=== PATIENT | male | born 1975 | race Caucasian/White ===

== ENCOUNTER 2017-10-20 11:44 | Emergency (ER) | payer OTHER ==
[2017-10-20 11:55] VITALS: BP 120/68; PULSE 56; RESP 20; TEMP 98.1
[2017-10-20] MEDS ORDERED: DIPH,PERTUS(ACELL)TETVAC-LF 0.5 ML VIAL IM ONE (12:16)
--- NOTE | 2017-10-20 12:24 | ED ---
General Adult HPI - General Chief complaint: Wound/Laceration Stated complaint: Finger Injury Source: patient, RN notes reviewed Mode of arrival: ambulatory Limitations: no limitations - History of Present Illness Initial comments: 82-year-old male presents to the emergency department for a chief complaint of middle finger laceration of the left hand. Patient states he was outside moving logs when a log rolled back down and hit his finger against another log. Patient denies falling or hitting his head. Patient denies any other trauma. Patient denies pain anywhere else in his hands or other digits of the left hand. Patient denies pain in his wrist. Patient denies any recent fevers or chills. Patient states he is not sure when he last got a tetanus shot. Patient states he can move the finger and has sensation to touch but it feels a little numb at the tip of the finger by the laceration. Patient denies any other complaints at this time including chest pain, shortness of breath, abdominal pain, fevers. - Related Data Home Medications Medication Instructions Recorded Confirmed Fexofenadine/Pseudoephedrine 1 each PO DAILY 02/01/16 02/07/16 [Nani-D 24 Hour Tablet] Previous Rx's Medication Instructions Recorded HYDROcodone/APAP 7.5-325MG [[place] 1 each PO Q4H PRN #60 tab 02/07/16 7.5] Acetaminophen-Codeine 300-30mg 1 tab PO Q8H PRN #12 tablet 10/20/17 [Tylenol #3] Allergies Allergy/AdvReac Type Severity Reaction Status Date / Time amoxicillin Allergy Rash/Hives Verified 10/20/17 11:55 Review of Systems ROS Statement: Those systems with pertinent positive or pertinent negative responses have been documented in the HPI. ROS Other: All systems not noted in ROS Statement are negative. Past Medical History Past Medical History: Asthma Additional Past Medical History / Comment(s): chronic back pain History of Any Multi-Drug Resistant Organisms: None Reported Past Surgical History: Back Surgery, Hernia Repair Additional Past Surgical History / Comment(s): back fusion, Past Anesthesia/Blood Transfusion Reactions: No Reported Reaction Past Psychological History: No Psychological Hx Reported Smoking Status: Never smoker Past Alcohol Use History: Occasional Past Drug Use History: None Reported - Past Family History Mother Family Medical History: No Reported History General Exam Limitations: no limitations General appearance: alert, in no apparent distress Respiratory exam: Present: normal lung sounds bilaterally. Absent: respiratory distress, wheezes, rales, rhonchi, stridor Cardiovascular Exam: Present: regular rate, normal rhythm, normal heart sounds. Absent: systolic murmur, diastolic murmur, rubs, gallop, clicks Extremities exam: Present: full ROM, tenderness (There is some tenderness to palpation of the distal phalanx of the third digit of the left hand. No other complaints of tenderness on the left hand.), normal capillary refill, other ( There is a 1.5 cm laceration to the volar aspect of the distal phalanx of the third digit on the left hand. No signs of infection. Patient has full sensation to the third digit. Patient is able to move the third digit has full range of motion. Capillary refill less than 2 seconds. ) Neurological exam: Present: alert, oriented X3, CN II-XII intact Course Vital Signs 10/20/17 11:53 Temperature 98.1 F Pulse Rate 56 L Respiratory 20 Rate Blood Pressure 120/68 O2 Sat by Pulse 100 Oximetry Procedures - Procedures Initial comment: Body area: Volar aspect of the distal phalanx of the third digit on the left hand. Laceration length: 2 cm Foreign bodies: no foreign bodies Tendon involvement: none Nerve involvement: none Vascular damage: no Anesthesia: local infiltration Local anesthetic: 4 mL 1% lidocaine Preparation: Patient was prepped and draped in the usual sterile fashion. Irrigation solution: saline Irrigation method:sterile water jet lavage Skin Closin-0 ethilon using sterile technique Number of sutures: 7 Technique: interupted Dressing: antibiotic ointment/ gauze Patient tolerance: Patient tolerated the procedure well with no immediate complications. Medical Decision Making - Medical Decision Making 42-year-old male sent to the emergency department for chief complaint of laceration to the distal phalanx of the third digit on the left hand. Patient states this happened an hour ago. He states a log fell back onto his finger in hit against another log. Patient received a tetanus shot in the emergency department. Patient denies any other complaints at this time besides pain in the left third digit. There was no pain elsewhere in the left hand. X-ray shows no acute fractures or dislocations of the left hand. 7 sutures were applied to the third digit of the left hand. It was covered with bacitracin ointment. Patient states he was exiting for pain. Patient admits to having a prescription of Lenore but states he doesn't take it because it makes his stomach upset. Patient was given a small prescription of Tylenol 3 and told to take Motrin. If the Motrin doesn't work he may try the Tylenol 3. He is to follow up with primary care in a couple days. He is to return to the emergency department if he notices any signs of infection. Disposition Clinical Impression: Laceration Disposition: HOME SELF-CARE Condition: Good Instructions: Care For Your Stitches (ED), Laceration (ED) Additional Instructions: Please return to the emergency department in 10-14 days for suture removal. You may apply antibiotic ointment. Please return sooner if you notice signs of infection. Please follow up with primary care provider in one to 2 days. Prescriptions: Acetaminophen-Codeine 300-30mg [Tylenol #3] 1 tab PO Q8H PRN #12 tablet PRN Reason: Pain Referrals: Abeil Logan DO [Primary Care Provider] - 1-2 days Time of Disposition: 13:36 Decision Time: 13:40
--- NOTE | 2017-10-20 12:30 | XR ---
EXAMINATION TYPE: XR hand complete LT , 3 VIEWS DATE OF EXAM ORDERED: 10/20/2017 HISTORY: Pain. COMPARISON: None. FINDINGS: No fracture, dislocation or other acute osseous lesion is seen. IMPRESSION: NORMAL LEFT HAND.
== END 2017-10-20 14:00 | disposition home or self-care (01) ==
LOC: EC 11:44
DX: S61.213A Laceration without foreign body of left middle finger without damage to nail, initial encounter (principal); Z23 Encounter for immunization; Z88.0 Allergy status to penicillin; Z79.899 Other long term (current) drug therapy; W22.8XXA Striking against or struck by other objects, initial encounter; Y92.009 Unspecified place in unspecified non-institutional (private) residence as the place of occurrence of the external cause
CPT/HCPCS: 12001; 90471; 90715; 99282

== ENCOUNTER → 2017-11-01 | Outpatient (CLI) | payer OTHER ==
--- NOTE | 2017-11-02 23:21 | MR ---
EXAMINATION TYPE: MR lumbar spine wo/w con DATE OF EXAM: 11/01/2017 COMPARISON: NONE HISTORY: Low back pain after fusion surgery TECHNIQUE: Multiplanar, multisequence images of the lumbar spine is performed without and with IV contrast, util izing 7.5 mL intravenous Gadavist FINDINGS: Sagittal images of the lumbar spine show vertebral body heights and alignment to appear sat isfactory. There is artifact from artificial disc material L4-L5 and L5-S1 levels. There is artifact from inferior interpedicular rods and screws bilaterally at L4-S1 levels. Disc space heights and hydr ation are satisfactory above the L4 level The conus medullaris is normal in position and signal endin g T12-L1 disc space. There is single enhancing lumbosacral nerve root, nonspecific finding. The bone marrow signal intensity is within normal limits. No suspicious osseous enhancement is seen. There ar e small hemangioma superior L1 vertebra. No significant spurring is noted. Axial images show the T12-L1, L1-L2, and L2-L3 levels also appear within normal limits. Axial images at the L3-L4 level shows broad disc bulge mildly effacing the anterior thecal sac with m ild facet degenerative changes bilaterally. Bilateral neural foramina are patent. Axial images at L4-L5 level show artifact from posterior fusion hardware and disc material. Spinal ca nal is grossly preserved. Bilateral neural foramina are patent. Enhancing right L5 exiting nerve is n oted. Axial images at L5-S1 level show artifact from disc material and posterior fusion hardware. Bilateral neural foramina are patent. Spinal canal is preserved. No suspicious retroperitoneal findings are seen. Paraspinal muscle bulk is maintained. IMPRESSION: Postsurgical change L4-S1 level with satisfactory alignment. Mild degenerative changes L3 -L4 level otherwise no significant findings are seen to account for patient's symptoms.
== END | disposition home or self-care (01) ==
LOC: RADMRIMAIN 20:08
PROVIDERS: ATTEND Family Medicine
DX: M47.816 Spondylosis without myelopathy or radiculopathy, lumbar region (principal); G89.29 Other chronic pain; Z98.890 Other specified postprocedural states
CPT/HCPCS: 72158; A9581

== ENCOUNTER 2019-02-28 17:26 | Emergency (ER) | payer OTHER ==
[2019-02-28 17:33] VITALS: RESP 18; TEMP 98.1
[2019-02-28] MEDS ORDERED: LIDOCAINE 1% INJ 10MG/ML (20 ML MDV) SQ ONE (17:48)
--- NOTE | 2019-02-28 18:37 | ED ---
General Adult HPI - General Chief complaint: Wound/Laceration Stated complaint: Laceration finger Time Seen by Provider: 02/28/19 17:37 Source: patient Mode of arrival: ambulatory Limitations: no limitations - History of Present Illness Initial comments: Patient is a 43-year-old male presents emergency Department with a chief complaint of a cut on the finger. Patient reports he was working with [employer] a [employer] outside and not wearing gloves when he accidentally lacerated the palmar aspect of the left fifth digit. Patient reports mild bleeding at the time of injury. Patient reports his tetanus shot is up-to-date. Patient is not on blood thinners. Patient denies limited range of motion at the site of injury. Patient reports minimal pain. Patient reports the pain is exacerbated with movement and alleviated rest. Patient denies taking medication to alleviate the symptoms. - Related Data Home Medications Medication Instructions Recorded Confirmed Fexofenadine/Pseudoephedrine 1 each PO DAILY 02/01/16 02/07/16 [Nani-D 24 Hour Tablet] Previous Rx's Medication Instructions Recorded HYDROcodone/APAP 7.5-325MG [[place] 1 each PO Q4H PRN #60 tab 02/07/16 7.5] Acetaminophen-Codeine 300-30mg 1 tab PO Q8H PRN #12 tablet 10/20/17 [Tylenol #3] Allergies Allergy/AdvReac Type Severity Reaction Status Date / Time amoxicillin Allergy Rash/Hives Verified 02/28/19 17:29 Review of Systems ROS Statement: Those systems with pertinent positive or pertinent negative responses have been documented in the HPI. ROS Other: All systems not noted in ROS Statement are negative. Past Medical History Past Medical History: Asthma Additional Past Medical History / Comment(s): chronic back pain History of Any Multi-Drug Resistant Organisms: None Reported Past Surgical History: Back Surgery, Hernia Repair Additional Past Surgical History / Comment(s): back fusion, Past Anesthesia/Blood Transfusion Reactions: No Reported Reaction Past Psychological History: No Psychological Hx Reported Smoking Status: Never smoker Past Alcohol Use History: Occasional Past Drug Use History: None Reported - Past Family History Mother Family Medical History: No Reported History General Exam - General Exam Comments Initial Comments: General: Well-developed well-nourished distress HEENT: Normocephalic/atraumatic, PERLL, pharynx erythema, swallowing well, EAC no erythema, no exudates, TM clear, no cervical lymph nodes Neck: Supple, nontender, trachea midline Chest/Lungs: Normal respirations, no signs of respiratory distress clear to auscultation bilaterally no wheezes, rales, rhonchi Cardiac: Regular rate and rhythm, normal S1-S2, no murmurs rubs or gallops Abdomen/GI: Soft nontender, bowel sounds equal or quadrant x4, no guarding, no rebound no CVA tenderness Musculoskeletal: Laceration on the palmar aspect of the left fifth digit measuring approximately 1 cm, +2 radial pulses bilaterally, no active bleeding at the laceration site, no edema or erythema Skin: Warmth, no rashes or lesions, no cyanosis or diaphoresis Neurologic: AAO x 3, CN 2-12 intact, Psychiatric: Mood and affect normal, judgment normal Limitations: no limitations Course Vital Signs 02/28/19 02/28/19 17:29 18:44 Temperature 98.1 F 98.1 F Pulse Rate 76 78 Respiratory 18 18 Rate Blood Pressure 129/80 126/80 O2 Sat by Pulse 98 98 Oximetry Procedures - Laceration Laceration #1 Consent Obtained: verbal consent Indication: laceration Site: hand (Left fifth digit) Size (cm): 1 Description: linear Depth: simple, single layer Sedation/Analgesia: none Anesthetic Used: lidocaine 1% Anesthesia Technique: local infiltration Amount (mls): 5 Pre-repair: irrigated extensively Type of Sutures: nylon Size of Sutures: 4-0 Number of Sutures: 4 Technique: simple, interrupted Patient Tolerated Procedure: well Medical Decision Making - Medical Decision Making Patient is a 43-year-old male presents emergency Department with chief complaint of a cut on his finger. The laceration site was repaired with 4 sutures. Patient tolerated procedure well. Patient advised to follow proper wound care instructions. Patient advised to return to emergency department in 10-14 days for suture removal. Return parameters were thoroughly discussed the patient was understanding and agreeable. Case discussed physician. Disposition Clinical Impression: Laceration Disposition: HOME SELF-CARE Condition: Stable Instructions (If sedation given, give patient instructions): Care For Your Stitches (DC), Laceration (DC) Additional Instructions: Please return to emergency department 10-14 days for suture removal or sooner if symptoms worsen. Please follow proper wound care structures. Is patient prescribed a controlled substance at d/c from ED?: No Referrals: Abiel Logan DO [Primary Care Provider] - 1-2 days Time of Disposition: 18:37
[2019-02-28 18:45] VITALS: BP 126/80; PULSE 78
== END 2019-02-28 18:44 | disposition home or self-care (01) ==
LOC: EC 17:26
DX: S61.217A Laceration without foreign body of left little finger without damage to nail, initial encounter (principal); Z79.899 Other long term (current) drug therapy; Z88.0 Allergy status to penicillin; Z98.1 Arthrodesis status; W23.0XXA Caught, crushed, jammed, or pinched between moving objects, initial encounter
CPT/HCPCS: 99282; 12001; J2001

== ENCOUNTER → 2020-02-16 | Outpatient (CLI) | payer OTHER ==
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
== END | disposition home or self-care (01) ==
LOC: RADCTMAIN 18:15
PROVIDERS: ATTEND Orthopaedic Surgery Orthopaedic Surgery of the Spine
DX: M47.22 Other spondylosis with radiculopathy, cervical region (principal); M50.321 Other cervical disc degeneration at C4-C5 level; M43.12 Spondylolisthesis, cervical region; M25.78 Osteophyte, vertebrae; E66.3 Overweight; M25.522 Pain in left elbow; M77.12 Lateral epicondylitis, left elbow
CPT/HCPCS: 72125

== ENCOUNTER → 2020-08-15 | Outpatient (CLI) | payer OTHER ==
--- NOTE | 2020-08-16 05:02 | MR ---
EXAMINATION TYPE: MR shoulder RT wo con DATE OF EXAM: 08/15/2020 COMPARISON: None HISTORY: Rt shoulder sharp pain with limited movement x2 months Multiplanar multiecho imaging of the right shoulder was performed without contrast. FINDINGS: Biceps tendon is intact. Subscapularis tendon is intact. Glenoid belen appear intact. There is mild n arrowing of the glenohumeral joint space. There is some hypertrophic spurring at the AC joint with mild edema at the AC joint space. There is n o evidence of a fracture. Humerus and scapula appear intact. The supraspinatus tendon is intact and there is no evidence of rotator cuff tear. There is no retract ion. There is no bony destructive process. IMPRESSION: No evidence of rotator cuff tear. There is some spurring and edema at the AC joint. No significant daugherty bacromial impingement. Mild shoulder joint space narrowing.
== END | disposition home or self-care (01) ==
LOC: RADMRIMAIN 20:15
PROVIDERS: ATTEND Orthopaedic Surgery
DX: M25.811 Other specified joint disorders, right shoulder (principal)

== ENCOUNTER 2020-09-26 18:54 | Observation (INO) | payer OTHER ==
[2020-09-26] MEDS ORDERED: ACETAMINOPHEN TAB 500 MG TAB PO STA (19:22)
--- NOTE | 2020-09-26 19:35 | ED ---
General Adult HPI - General Source: patient, RN notes reviewed, old records reviewed Mode of arrival: ambulatory Limitations: no limitations <Bobby Shields - Last Filed: 09/26/20 21:15> <Petros Dominguez - Last Filed: 09/26/20 22:26> - General Chief complaint: Chest Pain Stated complaint: chest pain, SOB Time Seen by Provider: 09/26/20 19:05 - History of Present Illness Initial comments: This is a 45-year-old male presents to the emergency department with no significant past medical history air patient comes into the emergency department because he is been short of breath over the last few days. Patient also is experiencing some chest pain which is sharp in nature. Patient states he thought though that the shortness of breath and chest pain got worse with exertion today while moving some heavy barrels. Patient denies any recent fever chills or cough. Patient states it's possible he has some exposure to cold because he is out in the community. Patient denies any palpitations. Patient denies any headache patient denies lightheadedness or dizziness. Patient denies abdominal pain patient denies nausea vomiting diarrhea. (Bobby Shields) - Related Data Home Medications Medication Instructions Recorded Confirmed Albuterol Inhaler [Ventolin Hfa 2 puff INHALATION RT-QID PRN 09/26/20 09/26/20 Inhaler] Ibuprofen [Motrin] 800 mg PO Q8H PRN 09/26/20 09/26/20 Allergies Allergy/AdvReac Type Severity Reaction Status Date / Time amoxicillin Allergy Rash/Hives Verified 09/26/20 21:04 Review of Systems ROS Other: All systems not noted in ROS Statement are negative. <Bobby Shields - Last Filed: 09/26/20 21:15> ROS Other: All systems not noted in ROS Statement are negative. <Petros Dominguez - Last Filed: 09/26/20 22:26> ROS Statement: Those systems with pertinent positive or pertinent negative responses have been documented in the HPI. Past Medical History Past Medical History: Asthma Additional Past Medical History / Comment(s): chronic back pain History of Any Multi-Drug Resistant Organisms: None Reported Past Surgical History: Back Surgery, Hernia Repair Additional Past Surgical History / Comment(s): back fusion, Past Anesthesia/Blood Transfusion Reactions: No Reported Reaction Past Psychological History: No Psychological Hx Reported Smoking Status: Never smoker Past Alcohol Use History: Occasional Past Drug Use History: None Reported - Past Family History Mother Family Medical History: No Reported History <Bobby Shields - Last Filed: 09/26/20 21:15> General Exam Limitations: no limitations <Bobby Shields - Last Filed: 09/26/20 21:15> - General Exam Comments Initial Comments: GENERAL: Patient is well-developed and well-nourished. Patient is nontoxic and well- hydrated and is in mild distress. ENT: Neck is soft and supple. No significant lymphadenopathy is noted. Oropharynx is clear. Moist mucous membranes. Neck has full range of motion without eliciting any pain. EYES: The sclera were anicteric and conjunctiva were pink and moist. Extraocular movements were intact and pupils were equal round and reactive to light. Eyelids were unremarkable. PULMONARY: Unlabored respirations. Good breath sounds bilaterally. No audible rales rhonchi or wheezing was noted. CARDIOVASCULAR: There is a regular rate and rhythm without any murmurs gallops or rubs. ABDOMEN: Soft and nontender with normal bowel sounds. SKIN: Skin is clear with no lesions or rashes and otherwise unremarkable. NEUROLOGIC: Patient is alert and oriented x3. Cranial nerves II through XII are grossly i ntact. Motor and sensory are also intact. Normal speech, volume and content. Symmetrical smile. MUSCULOSKELETAL: Normal extremities with adequate strength and full range of motion. No lower extremity swelling or edema. No calf tenderness. LYMPHATICS: No significant lymphadenopathy is noted PSYCHIATRIC: Normal psychiatric evaluation. (Bobby Shields) Course Vital Signs 09/26/20 19:07 Temperature 99.5 F Pulse Rate 99 Respiratory 18 Rate Blood Pressure 155/89 O2 Sat by Pulse 94 L Oximetry Medical Decision Making - Lab Data Result diagrams: 09/26/20 20:14 09/26/20 20:14 <Bobby Shields - Last Filed: 09/26/20 21:15> - Lab Data Result diagrams: 09/26/20 20:14 09/26/20 20:14 <Petros Dominguez - Last Filed: 09/26/20 22:26> - Medical Decision Making EKG shows normal sinus rhythm at 95 bpm UT interval 258 QRS is 92 QT interval 326 QTC is 49 per patient's EKG shows no ST segment elevation or depression. On chest x-ray of the right diaphragm is elevated. Dr. Dominguez will be taking over the care of this patient at 9 PM (Bobby Shields) Covid Test negative. 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 (Petros Dominguez) - Lab Data Lab Results 09/26/20 09/26/20 09/26/20 Range/Units 20:14 20:14 20:14 WBC 7.2 (3.8-10.6) k/uL RBC 5.43 (4.30-5.90) m/uL Hgb 16.7 (13.0-17.5) gm/dL Hct 48.6 (39.0-53.0) % MCV 89.5 (80.0-100.0) fL MCH 30.8 (25.0-35.0) pg MCHC 34.4 (31.0-37.0) g/dL RDW 12.9 (11.5-15.5) % Plt Count 275 (150-450) k/uL MPV 6.3 Neutrophils % 64 % Lymphocytes % 25 % Monocytes % 6 % Eosinophils % 3 % Basophils % 1 % Neutrophils # 4.6 (1.3-7.7) k/uL Lymphocytes # 1.8 (1.0-4.8) k/uL Monocytes # 0.4 (0-1.0) k/uL Eosinophils # 0.2 (0-0.7) k/uL Basophils # 0.0 (0-0.2) k/uL PT 11.0 (9.0-12.0) sec INR 1.0 (<1.2) APTT 22.8 (22.0-30.0) sec D-Dimer <0.17 (<0.60) mg/L FEU Sodium 135 L (137-145) mmol/L Potassium 4.1 (3.5-5.1) mmol/L Chloride 102 (98-107) mmol/L Carbon Dioxide 25 (22-30) mmol/L Anion Gap 8 mmol/L BUN 20 (9-20) mg/dL Creatinine 1.02 (0.66-1.25) mg/dL Est GFR (CKD-EPI)AfAm >90 (>60 ml/min/1.73 sqM) Est GFR (CKD-EPI)NonAf 88 (>60 ml/min/1.73 sqM) Glucose 93 (74-99) mg/dL Plasma Lactic Acid Aleksandr (0.7-2.0) mmol/L Calcium 9.5 (8.4-10.2) mg/dL Magnesium 2.0 (1.6-2.3) mg/dL Total Bilirubin 0.5 (0.2-1.3) mg/dL AST 30 (17-59) U/L ALT 16 (4-49) U/L Alkaline Phosphatase 62 (38-126) U/L Lactate Dehydrogenase 462 (313-618) U/L Troponin I (0.000-0.034) ng/mL C-Reactive Protein <5.0 (<10.0) mg/L Total Protein 7.2 (6.3-8.2) g/dL Albumin 4.4 (3.5-5.0) g/dL Coronavirus (PCR) (Not Detectd) 09/26/20 09/26/20 09/26/20 Range/Units 20:14 20:14 20:55 WBC (3.8-10.6) k/uL RBC (4.30-5.90) m/uL Hgb (13.0-17.5) gm/dL Hct (39.0-53.0) % MCV (80.0-100.0) fL MCH (25.0-35.0) pg MCHC (31.0-37.0) g/dL RDW (11.5-15.5) % Plt Count (150-450) k/uL MPV Neutrophils % % Lymphocytes % % Monocytes % % Eosinophils % % Basophils % % Neutrophils # (1.3-7.7) k/uL Lymphocytes # (1.0-4.8) k/uL Monocytes # (0-1.0) k/uL Eosinophils # (0-0.7) k/uL Basophils # (0-0.2) k/uL PT (9.0-12.0) sec INR (<1.2) APTT (22.0-30.0) sec D-Dimer (<0.60) mg/L FEU Sodium (137-145) mmol/L Potassium (3.5-5.1) mmol/L Chloride (98-107) mmol/L Carbon Dioxide (22-30) mmol/L Anion Gap mmol/L BUN (9-20) mg/dL Creatinine (0.66-1.25) mg/dL Est GFR (CKD-EPI)AfAm (>60 ml/min/1.73 sqM) Est GFR (CKD-EPI)NonAf (>60 ml/min/1.73 sqM) Glucose (74-99) mg/dL Plasma Lactic Acid Aleksandr 0.8 (0.7-2.0) mmol/L Calcium (8.4-10.2) mg/dL Magnesium (1.6-2.3) mg/dL Total Bilirubin (0.2-1.3) mg/dL AST (17-59) U/L ALT (4-49) U/L Alkaline Phosphatase (38-126) U/L Lactate Dehydrogenase (313-618) U/L Troponin I <0.012 (0.000-0.034) ng/mL C-Reactive Protein (<10.0) mg/L Total Protein (6.3-8.2) g/dL Albumin (3.5-5.0) g/dL Coronavirus (PCR) Not Detected (Not Detectd) Disposition <Bobby Shields - Last Filed: 09/26/20 21:15> Decision Time: 22:26 <Petros Dominguez - Last Filed: 09/26/20 22:26> Clinical Impression: Elevated diaphragm, Dyspnea, Chest pain Disposition: ADMITTED IP TO THIS [facility] Referrals: Abiel Logan DO [Primary Care Provider] - 1-2 days
--- NOTE | 2020-09-26 20:19 | XR ---
EXAMINATION TYPE: XR chest 1V portable DATE OF EXAM: 09/26/2020 COMPARISON: NONE HISTORY: Chest pain TECHNIQUE: 2 views FINDINGS: There is elevated right diaphragm. Lungs are clear of consolidation. There are no hilar mas ses. Heart size is fairly normal. There is no heart failure. There are chest leads. IMPRESSION: Elevated right diaphragm could relate to some diaphragm paralysis. Normal heart.
[2020-09-26 20:20] LABS: Basophils % (A) 1 %; Eosinophils # (A) 0.2 k/uL (0-0.7); Eosinophils % (A) 3 %; HCT 48.6 % (39.0-53.0); HGB 16.7 gm/dL (13.0-17.5); Lymphocytes # (A) 1.8 k/uL (1.0-4.8); Lymphocytes % (A) 25 %; MCH 30.8 pg (25.0-35.0); MCHC 34.4 g/dL (31.0-37.0); MCV 89.5 fL (80.0-100.0); Mean Platelet Volume 6.3; Monocytes # (A) 0.4 k/uL (0-1.0); Monocytes % (A) 6 %; Neutrophils # (A) 4.6 k/uL (1.3-7.7); Neutrophils % (A) 64 %; Platelet Count 275 k/uL (150-450); RBC 5.43 m/uL (4.30-5.90); RDW 12.9 % (11.5-15.5); WBC 7.2 k/uL (3.8-10.6)
[2020-09-26 20:31] LABS: ALT 16 U/L (4-49); AST 30 U/L (17-59); African American GFR (CKD) >90 (>60 ml/min/1.73 sqM); Albumin 4.4 g/dL (3.5-5.0); Alkaline Phosphatase 62 U/L (38-126); Blood Urea Nitrogen 20 mg/dL (9-20); C Reactive Protein <5.0 mg/L (<10.0); Calcium 9.5 mg/dL (8.4-10.2); Carbon Dioxide 25 mmol/L (22-30); Chloride 102 mmol/L (98-107); Glucose 93 mg/dL (74-99); LDH 462 U/L (313-618); Non-African American GFR(CKD) 88 (>60 ml/min/1.73 sqM); Total Bilirubin 0.5 mg/dL (0.2-1.3); Total Protein 7.2 g/dL (6.3-8.2)
[2020-09-26 20:38] LABS: Partial Thromboplastin Time 22.8 sec (22.0-30.0)
[2020-09-26 20:39] LABS: Anion Gap 8 mmol/L; Potassium 4.1 mmol/L (3.5-5.1); Sodium 135 mmol/L (137-145)
[2020-09-26] MEDS ORDERED: NITROGLYCERIN SL TABS 0.4 MG TAB SUBLINGUAL PRN (22:22)
[2020-09-27 03:31] LABS: Ferritin 141.7 ng/mL (22.0-322.0)
[2020-09-27 05:26] LABS: Cholesterol 165 mg/dL (<200); HDL Cholesterol 25 mg/dL (40-60); LDL Cholesterol,Calculated 117 mg/dL (0-99); Triglycerides 115 mg/dL (<150)
[2020-09-27 07:33] VITALS: RESP 16
[2020-09-27] MEDS ORDERED: ACETAMINOPHEN TAB 500 MG TAB PO PRN (09:19)
[2020-09-27] MEDS ORDERED: ALBUTEROL NEBULIZED 2.5 MG/3 ML INHALATION PRN (09:29)
[2020-09-27] MEDS ORDERED: PANTOPRAZOLE 40 MG/10 ML VIAL IVP SCH (09:30)
[2020-09-27] MEDS: ALBUTEROL HFA INHALER INHALATION SCH ×2 (11:13→15:20)
--- NOTE | 2020-09-27 13:22 | FL ---
EXAMINATION TYPE: FL sniff test without CXR DATE OF EXAM: 09/27/2020 Comparison: Radiograph 09/26/2020 Clinical History: 45-year-old male paralyzed right diaphragm TECHNIQUE: Real-time fluoroscopy to visualize the movement of the diaphragm. FINDINGS: Asymmetric elevation right hemidiaphragm. During normal breathing and deep breathing, there is normal direction of movement of the hemidiaphrag ms but with decreased excursion on the right. However, with sniffing maneuver, there is xiomara paradoxical movement of the right hemidiaphragm. 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
--- NOTE | 2020-09-27 13:45 | P.CNPUL ---
History of Present Illness Consult date: 09/27/20 Requesting physician: Abiel Logan Reason for consult: dyspnea, abnormal CXR/CT Chief complaint: Shortness of breath. History of present illness: 45-year-old male, well masses see because of an abnormal chest x-ray, showing an elevated right hemidiaphragm. The patient states that recently, he's been noticing that he is more short of breath. The shortness of breath tends to be worse when he is laying flat, and better when he sitting up. In addition, he doesn't patient does have a history of mild asthma for which she takes an albuterol inhaler when necessary. He states any activity seems to make him more short of breath. He doesn't seem to think that it's his asthma is causing the shortness of breath. He denies any pain in the chest. He denies any trauma in the chest. This been no chest surgery. Anyway, we went ahead and ordered a sniff test. The sniff test does show paradoxical motion of the diaphragm. The patient will likely need a plication. I did speak to him about the surgery for diaphragm paralysis. He otherwise states that he's healthy. He has no other major medical problems. His only ALLERGY is amoxicillin. His only medical history is that of mild asthma. He does have chronic back pain, has had a hernia repair, and back surgery. Review of Systems REVIEW OF SYSTEMS: CONSTITUTIONAL: [Negative.] NEUROLOGIC: [ Negative.] HEENT: [ Negative.] CARDIAC: [Negative.] PULMONARY: Recent development of shortness of breath, worse on exertion, and worse when he is lying flat. GI: [Negative.] : [Negative.] RHEUMATOLOGIC: [ Negative.] IMMUNOLOGIC: [ Negative.] ENDOCRINE: [Negative. ] DERMATOLOGIC: [Negative.] Past Medical History Past Medical History: Asthma Additional Past Medical History / Comment(s): chronic back pain History of Any Multi-Drug Resistant Organisms: None Reported Past Surgical History: Back Surgery, Hernia Repair Additional Past Surgical History / Comment(s): back fusion, Past Anesthesia/Blood Transfusion Reactions: No Reported Reaction Past Psychological History: No Psychological Hx Reported Smoking Status: Never smoker Past Alcohol Use History: Occasional Past Drug Use History: None Reported - Past Family History Mother Family Medical History: No Reported History Medications and Allergies Home Medications Medication Instructions Recorded Confirmed Type Albuterol Inhaler [Ventolin Hfa 2 puff INHALATION RT-QID PRN 09/26/20 09/26/20 History Inhaler] Ibuprofen [Motrin] 800 mg PO Q8H PRN 09/26/20 09/26/20 History Allergies Allergy/AdvReac Type Severity Reaction Status Date / Time amoxicillin Allergy Rash/Hives Verified 09/26/20 21:04 Physical Exam Osteopathic Statement: *. No significant issues noted on an osteopathic structural exam other than those noted in the History and Physical/Consult. Vitals: Vital Signs Temp Pulse Pulse Resp BP BP Pulse Ox 09/27/20 08:00 16 09/27/20 07:00 98.0 F 79 16 122/84 96 09/27/20 02:51 98.8 F 73 14 135/82 98 09/26/20 22:50 72 18 142/86 98 09/26/20 22:38 98.8 F 86 14 137/87 98 09/26/20 22:22 98 09/26/20 19:07 99.5 F 99 18 155/89 94 L Intake and Output 09/26/20 09/27/20 09/27/20 22:59 06:59 14:59 Intake Total 480 Balance 480 Intake: Oral 480 Other: Voiding Method Toilet # Voids 3 Weight 86.183 kg No acute distress, oriented 3. Patient not on any supplemental oxygen. HEENT examination is grossly unremarkable. Mucous membranes are moist. No oral lesions. Neck supple. Full range of motion. No adenopathy thyromegaly or neck vein distention. Cardiovascular examination reveals regular rhythm rate. S1-S2 normal. No S3 or S4. No discernible murmur noted. Lungs reveal clear breath sounds. Breath sounds are slightly diminished on the right side compared to the left. I don't hear any adventitious lung sounds including wheezes, rhonchi, or crackles. Abdomen soft bowel sounds are heard. No masses or tenderness. Extremities are intact. No cyanosis clubbing or edema. Skin is without rash or lesion. Neurologic examination is brief but nonfocal. Results - Laboratory Findings CBC and BMP: 09/26/20 20:14 09/26/20 20:14 PT/INR, D-dimer PT 11.0 sec (9.0-12.0) 09/26/20 20:14 INR 1.0 (<1.2) 09/26/20 20:14 D-Dimer <0.17 mg/L FEU (<0.60) 09/26/20 20:14 Abnormal lab findings: Abnormal Labs 09/26/20 09/27/20 20:14 04:09 Sodium 135 L LDL Cholesterol, Calc 117 H HDL Cholesterol 25 L - Diagnostic Findings Chest x-ray: image reviewed Assessment and Plan Assessment: Right hemidiaphragm paralysis, which may be new, or chronic, and unnoticed. Shortness of breath, worse when exerting himself, or worse when he is lying flat, secondary to right diaphragm paralysis. History of mild asthma. Plan: Plan dated 09/27/2020. The patient's sniff test was clearly abnormal. He has paradoxical motion of the diaphragm on the right. The patient will need a plication. I will likely send the patient down to a thoracic surgeon at [facility] by the name of Franklin Landeros. I will see this patient in the office following discharge. No additional recommendations are made. Prognosis is guarded. He absolutely denies any trauma recently, or any chest surgery. Additional recommendations and suggestions are forthcoming. Time with Patient: Greater than 30
[2020-09-27 14:32] VITALS: BP 155/80; PULSE 89; TEMP 98.5
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
[2020-09-28] MEDS ORDERED: PANTOPRAZOLE 40 MG TABLET PO SCH (09:00)
== END 2020-09-27 15:55 | disposition home or self-care (01) ==
LOC: EC 18:54 → 6NMEDSUR 22:22
PROVIDERS: ADMIT Family Medicine; ATTEND Family Medicine
DX: J98.6 Disorders of diaphragm (principal); R07.89 Other chest pain; G89.29 Other chronic pain; J45.20 Mild intermittent asthma, uncomplicated; Z98.1 Arthrodesis status; Z20.822 Contact with and (suspected) exposure to COVID-19
CPT/HCPCS: 96374; 93005 ×2; 99285; 36415; 85379; 80061; 80053; 82728; 83605; 83615; 83735; 84484 ×2; 85025; 85610; 85730; 86140; 87040; 84145; 87635; 76000; 71045; G0378 ×2; C9113

== ENCOUNTER → 2021-01-11 | Outpatient (CLI) | payer OTHER ==
[2021-01-11 22:41] LABS: Peanut IgE <0.10 kU/L
[2021-01-11 22:42] LABS: Walnut IgE (Food) <0.10 kU/L
[2021-01-12 12:19] LABS: Almond IgE 0.29 kU/L (<0.10); Almond IgE Class CLASS 0/1
[2021-01-12 12:20] LABS: Banana IgE Class CLASS 0/1; Casein IgE Class CLASS 0; Cashew IgE <0.10 kU/L (<0.10); Cashew IgE Class CLASS 0; Latex IgE Class CLASS 0/1; Pecan IgE <0.10 kU/L (<0.10); Pecan IgE Class CLASS 0; Pistachio IgE Class CLASS 0
[2021-01-12 12:21] LABS: Blueberry IgE <0.10 kU/L (<0.10); Blueberry IgE Class CLASS 0
== END | disposition home or self-care (01) ==
LOC: LABWHC1 12:57
PROVIDERS: ATTEND Allergy & Immunology
DX: J45.40 Moderate persistent asthma, uncomplicated (principal)
CPT/HCPCS: 36415; 86003

== ENCOUNTER 2023-03-14 07:32 | Emergency (ER) | payer OTHER ==
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
[2023-03-14 09:47] VITALS: BP 125/83; PULSE 81; RESP 16; TEMP 98.7
== END 2023-03-14 09:47 | disposition home or self-care (01) ==
LOC: EC 07:32
DX: S40.012A Contusion of left shoulder, initial encounter (principal); M51.36 Other intervertebral disc degeneration, lumbar region; J45.909 Unspecified asthma, uncomplicated; Z79.899 Other long term (current) drug therapy; Z88.0 Allergy status to penicillin; V89.2XXA Person injured in unspecified motor-vehicle accident, traffic, initial encounter; Y92.411 Interstate highway as the place of occurrence of the external cause
CPT/HCPCS: 71046; 72050; 72100; 99284

== ENCOUNTER → 2024-02-18 | Outpatient (CLI) | payer OTHER | END | disposition home or self-care (01) | LOC: LABPRL 14:00 | PROVIDERS: ATTEND Family Medicine | DX: D64.9 Anemia, unspecified (principal) | CPT/HCPCS: 85025 ==